=== PATIENT | female | born 1990 | race Two or more races ===

== ENCOUNTER 2018-11-21 20:19 | Emergency (ER) | payer MEDICAID, OTHER ==
[~2018-11-21] VITALS: Ht 152.4 cm; Wt 89.4 kg
[2018-11-21 20:21] VITALS: BP 143/83
== END 2018-11-21 21:27 | disposition home or self-care (01) ==
LOC: ED 21:05
DX: L20.84 Intrinsic (allergic) eczema (principal)
CPT/HCPCS: 99283